=== PATIENT | male | born 2000 | race Caucasian/White ===

== ENCOUNTER 2022-06-29 10:20 | Emergency (ER) | payer OTHER, SELFPAY ==
--- NOTE | ~2022-06-29 | XR_ITS ---
EXAMINATION: XR ankle LT min 3V DATE: 06/29/2022 10:48 INDICATION: Left ankle pain post injury TECHNIQUE: Anteroposterior, oblique, mortise, and lateral views of the left ankle were obtained. COMPARISON: None. FINDINGS: Alignment is normal. No fracture. Joint spaces are well maintained. A couple bone islands in the diamante caneus. No ankle joint effusion. Soft tissue swelling overlying the lateral malleolus. IMPRESSION: 1. No acute osseous abnormality. Reviewed, dictated and finalized at location A.
[2022-06-29 10:35] VITALS: BP 150/76; PULSE 72; RESP 18; TEMP 37.1; O2SAT 98
--- NOTE | 2022-06-29 11:17 | ED.GENADULT ---
HPI - General Adult General Chief complaint: Extremity Injury, Lower Stated complaint: lt ankle injury History of Present Illness HPI narrative: Patient is a 21 y/o male who presents to the urgent care via pov for an evaluation of a left ankle injury that occurred last night. He is made by his sister. He reports he accidentally misstepped while walking down the stairs causing his left ankle to twist inward. He also reports pain and swelling. Pain is intermittent and achy in nature. Current pain level is 6 out of 10 on pain scale. Gerald wrap and NSAIDs provide moderate relief. Weightbearing worsens pain. Related Data Home Medications Medication Instructions Recorded Confirmed No Home Medications 06/29/22 06/29/22 Allergies Allergy/AdvReac Type Severity Reaction Status Date / Time No Known Allergies Allergy Unknown Verified 06/29/22 10:46 Review of Systems Review of Systems: Pertinent negatives: fever, chills, sweats, change in appetite, poor p.o. intake, malaise, calf tenderness, skin color changes, rash, warmth, numbness, tingling, loss of sensation, deformity, decreased range of motion, weakness, difficulty with ambulation/coordination, nausea, vomiting, lymphadenopathy, shortness of breath, chest pain, heart palpitations, and heart murmur. PMFSH Comments I have reviewed and agree with the patient's past medical, surgical, social, and family hx as documented by the RN. There is no relevant family history pertinent to the presenting complaint. Exam Narrative: GENERAL: Well-appearing, well-nourished, and in no acute distress. HEAD: Normocephalic, atraumatic. NECK: Supple. No Lymphadenopathy or nuchal rigidity appreciated. CHEST: Bilateral lung hong are clear to auscultation. No respiratory distress. No evidence of cough or pleuritic cp upon examination. HEART: Regular rate and rhythm. No murmur, gallop, or rub heard. EXTREMITIES: MODERATE GENERALIZED SWELLING NOTED TO LEFT ANKLE. NO EVIDENCE OF POINT TENDERNESS. MODERATE PAIN ELICITED WITH ACTIVE AND PASSIVE DORSIFLEXION. No evidence of injury, decreased ROM, swelling, cyanosis, hematoma, laceration, abrasion, deformity, rash, or puncture. No evidence of dislocation, ligament laxity, effusion, or pain at rest. Pulses palpable at 2+, strength 5/5, and cap refill < 3 seconds in affected extremity. DTRs normal. SLOWED GAIT WITH LEFT SIDED LIMP SKIN: Warm, dry, no rash. NEURO: No focal deficits. Alert and oriented x3. Course Course Level of Care: Express Care Visit Vital Signs Vital signs: Vital Signs Temperature 98.7 F 06/29/22 10:35 Pulse Rate 72 06/29/22 10:35 Respiratory Rate 18 06/29/22 10:35 Blood Pressure 150/76 H 06/29/22 10:35 Pulse Oximetry 98 06/29/22 10:35 Oxygen Delivery Room Air 06/29/22 10:35 Temperature 98.7 F 06/29/22 10:35 Pulse Rate 72 06/29/22 10:35 Respiratory Rate 18 06/29/22 10:35 Blood Pressure 150/76 H 06/29/22 10:35 Pulse Oximetry 98 06/29/22 10:35 Oxygen Delivery Room Air 06/29/22 10:35 Due to an elevated blood pressure, I had a detailed discussion with the patient and/or guardian regarding the need for follow-up with their primary care provider within the next 3-4 days. Patient verbalized understanding and agreed. Medical Decision Making Differential Diagnosis Differential Diagnosis: Sprain, strain, cellulitis, open fracture, closed fracture, gout Vital Signs Vital Signs: Vital Signs Temperature 98.7 F 06/29/22 10:35 Pulse Rate 72 06/29/22 10:35 Respiratory Rate 18 06/29/22 10:35 Blood Pressure 150/76 H 06/29/22 10:35 Pulse Oximetry 98 06/29/22 10:35 Oxygen Delivery Room Air 06/29/22 10:35 Temperature 98.7 F 06/29/22 10:35 Pulse Rate 72 06/29/22 10:35 Respiratory Rate 18 06/29/22 10:35 Blood Pressure 150/76 H 06/29/22 10:35 Pulse Oximetry 98 06/29/22 10:35 Oxygen Delivery Room Air 06/29/22 10:35 Imaging Data My impression: N
== END 2022-06-29 11:30 | disposition home or self-care (01) ==
PROVIDERS: Emergency Provider Nurse Practitioner Family
DX: S93.402A Sprain of unspecified ligament of left ankle, initial encounter (principal); S96.912A Strain of unspecified muscle and tendon at ankle and foot level, left foot, initial encounter; W10.9XXA Fall (on) (from) unspecified stairs and steps, initial encounter
CPT/HCPCS: 73610; 99213; G0463

== ENCOUNTER 2022-12-07 17:50 | Emergency (ER) | payer OTHER, SELFPAY ==
--- NOTE | 2022-12-07 18:01 | ED.GENADULT ---
HPI - General Adult General Chief complaint: Skin/Abscess/Foreign Body Stated complaint: rash in groin Time Seen by Provider: 12/07/22 18:01 Source: patient Mode of arrival: ambulatory Limitations: no limitations History of Present Illness HPI narrative: 22-year-old male patient presents to the [facility] with complaints of a wound to the left hip and the left groin for the past 3-4 days. Patient states the wound on left hip did but about 3 days ago and does appear that it is healing better but did put a ring around just make sure that the swelling or redness was not worsening. Patient states he has formed a little what he describes as cyst . To the left groin area it is tender. patient also complaining rash on right side of groin that has been itchy. Denies fevers, body aches or chills. Related Data Allergies Allergy/AdvReac Type Severity Reaction Status Date / Time No Known Allergies Allergy Unknown Verified 12/07/22 18:04 Review of Systems Review of Systems: CONSTITUTIONAL: Denies fever, chills, or sweats. EYES: Denies visual changes, redness, or discharge. ENT: Denies rhinorrhea, congestion, sore throat, or otalgia. CARDIOVASCULAR: Denies chest pain, palpitations, or edema. RESPIRATORY: Denies cough or dyspnea. GASTROINTESTINAL: Denies abdominal pain, nausea, vomiting, or diarrhea. GENITOURINARY: Denies dysuria or hematuria. SKIN: Positive wound to left hip and left groin. Positive rash to right groin. MUSCULOSKELETAL: Denies back pain, joint pain, or myalgia. NEUROLOGIC: Denies headache, numbness, or weakness. PSYCHIATRIC: Denies anxiety or depression. [facility] Past Medical History Medical History (Updated 12/07/22 @ 18:16 by PINKY Vogel) ADD (attention deficit disorder) Left wrist fracture Social History Social History Smoking status: Unknown if ever smoked Alcohol intake: current Substance use: never Living arrangements: with family Comments At the time of my signature I agree with nursing past medical history, surgical, social, and family history. There is no relevant family history pertinent to the presenting complaint. Exam Narrative: GENERAL: Well-appearing, well-nourished, and in no acute distress. HEAD: Normocephalic, atraumatic. EYES: PERRLA and EOMI. ENT: Nares clear, no rhinorrhea or epistaxis. Mucous membranes moist. NECK: Supple. No lymphadenopathy CHEST: Clear to auscultation. No respiratory distress. HEART: Regular rate and rhythm. No murmur heard. Normal peripheral pulses. ABDOMEN: Soft, nontender, nondistended, normal active bowel sounds. EXTREMITIES: Normal range of motion. No edema. SKIN: Patient has approximately less than 0.5 cm scabbed over flat wound noted to the left hip. No surrounding erythema or warmth does appear to be healing. There is a very small approximately 1 cm abscess with a purple dome-shaped oil to the left groin with slight erythema and warmth noted. It is tender to the touch. patient does have pinpoint erythemic rash noted to the crease of the right groin with satellite areas. NEURO: No focal deficits. Alert and oriented x3. Course Course Level of Care: Express Care Visit Vital Signs Vital signs: Vital Signs Temperature 36.3 C L 12/07/22 18:02 Pulse Rate 87 12/07/22 18:02 Respiratory Rate 16 12/07/22 18:02 Blood Pressure 138/74 12/07/22 18:02 Pulse Oximetry 98 12/07/22 18:02 Oxygen Delivery Room Air 12/07/22 18:02 Temperature 36.3 C L 12/07/22 18:02 Pulse Rate 87 12/07/22 18:02 Respiratory Rate 16 12/07/22 18:02 Blood Pressure 138/74 12/07/22 18:02 Pulse Oximetry 98 12/07/22 18:02 Oxygen Delivery Room Air 12/07/22 18:02 vital signs reviewed The patient has been informed that they may have pre-hypertension or Hypertension based on a BP reading in the department. I recommend that the patient call the primary care provider listed on their dis
[2022-12-07 18:02] VITALS: BP 138/74; PULSE 87; RESP 16; TEMP 36.3; O2SAT 98
== END 2022-12-07 18:17 | disposition home or self-care (01) ==
PROVIDERS: Emergency Provider Nurse Practitioner Family
DX: L02.214 Cutaneous abscess of groin (principal); L02.416 Cutaneous abscess of left lower limb; B35.6 Tinea cruris
CPT/HCPCS: 99213; G0463

== ENCOUNTER 2023-02-08 14:05 | Emergency (ER) | payer BC, OTHER, SELFPAY ==
[2023-02-08 14:19] VITALS: BP 150/77; PULSE 65; RESP 18; TEMP 36.7; O2SAT 98
--- NOTE | 2023-02-08 14:51 | ED.URI ---
HPI - URI/Sore Throat General Chief Complaint: Upper Respiratory Infection Stated Complaint: sore throat Time Seen by Provider: 02/08/23 14:40 Source: patient and RN notes reviewed Mode of arrival: ambulatory Limitations: no limitations History of Present Illness HPI Narrative: Patient presents today complaining of 3 day history of sore throat and irritation. Denies any additional symptoms to include fever, congestion, rhinorrhea, cough. Denies known sick contacts. Currently rates his pain 2/10 and has been taking ibuprofen with some relief. Related Data Allergies Allergy/AdvReac Type Severity Reaction Status Date / Time No Known Allergies Allergy Unknown Verified 02/08/23 14:40 Review of Systems Review of Systems: CONSTITUTIONAL: Denies body aches, fever, chills, or sweats. EYES: Denies visual changes, redness, or discharge. ENT: Denies rhinorrhea, congestion, or otalgia.+ sore throat CARDIOVASCULAR: Denies chest pain, palpitations, or edema. RESPIRATORY: Denies cough or dyspnea. GASTROINTESTINAL: Denies abdominal pain, nausea, vomiting, or diarrhea. GENITOURINARY: Denies dysuria or hematuria. SKIN: Denies rash, itching, or wounds. MUSCULOSKELETAL: Denies back pain, joint pain, or myalgia. NEUROLOGIC: Denies headache, numbness, tingling, or weakness. PSYCH: Denies depression or anxiety. [facility] Past Medical History Medical History ADD (attention deficit disorder) Left wrist fracture Social History Social History Smoking status: Unknown if ever smoked Alcohol intake: current Substance use: never Living arrangements: with family Comments At time of signature, I have reviewed and agree with nursing past medical, surgical, social and family history unless otherwise noted. Please see nursing chart for further information. There is no relevant family history pertinent to the presenting complaint Exam Narrative: GENERAL: Well-appearing, well-nourished, and in no acute distress. HEAD: Normocephalic, atraumatic. EYES: EOMI. No redness or drainage. Conjunctivae normal. ENT: Mucous membranes pink and moist. Nares clear. No rhinorrhea. TMs normal bilaterally. Throat erythematous and edematous. Tonsils 3+ with white exudate. Uvula midline. NECK: Normal AROM. Supple. Bilateral tonsillar lymphadenopathy. CHEST: No respiratory distress. Clear to auscultation. HEART: Regular rate and rhythm. No murmur appreciated. Normal peripheral pulses. EXTREMITIES: Normal range of motion. No edema. SKIN: Warm, dry, no rash. Capillary refill normal. Normal skin turgor. NEURO: No focal deficits. Alert and oriented x3. Gait steady. PSYCH: Normal affect. No signs of depression or anxiety. Course Course Level of Care: Express Care Visit Vital Signs Vital signs: Vital Signs Temperature 98.1 F 02/08/23 14:19 Pulse Rate 65 02/08/23 14:19 Respiratory Rate 18 02/08/23 14:19 Blood Pressure 150/77 H 02/08/23 14:19 Pulse Oximetry 98 02/08/23 14:19 Oxygen Delivery Room Air 02/08/23 14:19 Temperature 98.1 F 02/08/23 14:19 Pulse Rate 65 02/08/23 14:19 Respiratory Rate 18 02/08/23 14:19 Blood Pressure 150/77 H 02/08/23 14:19 Pulse Oximetry 98 02/08/23 14:19 Oxygen Delivery Room Air 02/08/23 14:19 Reviewed. Pt has been instructed to follow up with his PCP regarding his elevated blood pressure today. MDM - URI/Sore Throat MDM Narrative Medical decision making narrative: Rapid strep positive. Prescription for antibiotics sent to pharmacy. Anticipatory guidance given. Differential Diagnosis Differential diagnosis: Likely upper respiratory infection, pharyngitis and other (Strep throat) Lab Data Attestation: I reviewed the patient's lab results. Labs: Strep Screen Positive Group A Strep *(Reference Ra
== END 2023-02-08 15:01 | disposition home or self-care (01) ==
PROVIDERS: Emergency Provider Nurse Practitioner
DX: J02.0 Streptococcal pharyngitis (principal)
CPT/HCPCS: 87880; 99213; G0463

== ENCOUNTER 2023-05-21 12:05 | Emergency (ER) | payer BC, OTHER, SELFPAY ==
[2023-05-21 12:14] VITALS: BP 124/73; PULSE 70; RESP 18; TEMP 37; O2SAT 99
--- NOTE | 2023-05-21 12:42 | ED.URI ---
HPI - URI/Sore Throat General Chief Complaint: Upper Respiratory Infection Stated Complaint: covid symptoms Time Seen by Provider: 05/21/23 12:32 Source: patient and RN notes reviewed Mode of arrival: ambulatory Limitations: no limitations History of Present Illness HPI Narrative: Patient presents today with a 3 day history of fatigue, cough, sore throat. Denies fever, shortness of breath, chest pain. If girlfriend was diagnosed with COVID-19 5 days ago. He has been taking cold and flu medication without much relief. Denies history of asthma or any other chronic illnesses. He is a nonsmoker. Related Data Home Medications Medication Instructions Recorded Confirmed No Home Medications 05/21/23 05/21/23 Allergies Allergy/AdvReac Type Severity Reaction Status Date / Time No Known Allergies Allergy Unknown Verified 05/21/23 12:19 Review of Systems Review of Systems: CONSTITUTIONAL: Denies body aches, fever, chills, or sweats.+ fatigue EYES: Denies visual changes, redness, or discharge. ENT: Denies rhinorrhea, congestion, or otalgia.+ sore throat CARDIOVASCULAR: Denies chest pain, palpitations, or edema. RESPIRATORY: Denies dyspnea.+ cough GASTROINTESTINAL: Denies abdominal pain, nausea, vomiting, or diarrhea. GENITOURINARY: Denies dysuria or hematuria. SKIN: Denies rash, itching, or wounds. MUSCULOSKELETAL: Denies back pain, joint pain, or myalgia. NEUROLOGIC: Denies headache, numbness, tingling, or weakness. PSYCH: Denies depression or anxiety. [facility] Past Medical History Medical History ADD (attention deficit disorder) Left wrist fracture Surgical History Surgical History No history of previous surgery Social History Social History Smoking status: Unknown if ever smoked Alcohol intake: current Substance use: never Living arrangements: with family Comments At time of signature, I have reviewed and agree with nursing past medical, surgical, social and family history unless otherwise noted. Please see nursing chart for further information. There is no relevant family history pertinent to the presenting complaint Exam Narrative: GENERAL: Well-appearing, well-nourished, and in no acute distress. HEAD: Normocephalic, atraumatic. EYES: EOMI. No redness or drainage. Conjunctivae normal. ENT: Mucous membranes pink and moist. Nares clear. No rhinorrhea. TMs normal bilaterally. Throat mildly erythematous without edema or exudate. Uvula midline. NECK: Normal AROM. Supple. No lymphadenopathy. CHEST: No respiratory distress. Clear to auscultation. HEART: Regular rate and rhythm. No murmur appreciated. Normal peripheral pulses. EXTREMITIES: Normal range of motion. No edema. SKIN: Warm, dry, no rash. Capillary refill normal. Normal skin turgor. NEURO: No focal deficits. Alert and oriented x3. Gait steady. PSYCH: Normal affect. No signs of depression or anxiety. Course Course Level of Care: Express Care Visit Vital Signs Vital signs: Vital Signs Temperature 98.6 F 05/21/23 12:14 Pulse Rate 70 05/21/23 12:14 Respiratory Rate 18 05/21/23 12:14 Blood Pressure 124/73 05/21/23 12:14 Pulse Oximetry 99 05/21/23 12:14 Oxygen Delivery Room Air 05/21/23 12:14 Temperature 98.6 F 05/21/23 12:14 Pulse Rate 70 05/21/23 12:14 Respiratory Rate 18 05/21/23 12:14 Blood Pressure 124/73 05/21/23 12:14 Pulse Oximetry 99 05/21/23 12:14 Oxygen Delivery Room Air 05/21/23 12:14 Reviewed. Pt has been instructed to follow up with his PCP regarding his elevated blood pressure today. MDM - URI/Sore Throat MDM Narrative Medical decision making narrative: COVID-19 positive. He does not fall into a high risk category for Paxlovid prescription. He is not experiencing any high-ri
== END 2023-05-21 12:49 | disposition home or self-care (01) ==
PROVIDERS: Emergency Provider Nurse Practitioner; PCP Physician Assistant Medical
DX: U07.1 COVID-19 (principal)
CPT/HCPCS: 87426; 99213; C9803; G0463

== ENCOUNTER 2025-09-17 08:28 | Emergency (ER) | payer BC, SELFPAY ==
--- OUTSIDE RECORDS SUMMARY | 2025-09-17 08:30 | XMS_ITS | Clinical Summary ---
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 Red all around, inflamed and painful. ) 06/28/2025 Travel from Last 3 Months Immunizations Immunization Administration Dates Next Due Dtap/Hib Vaccine 2005,06/02/2001, 1,01/25/2001 Hepatitis A (Generic) 09/03/2007,11/23/2006 Hepatitis B 11/29/2001,06/02/2001,2000 Hib Vaccine, Prp-T 06/02/2001,03/22/2001, 001 IPV/OPV 2005,11/29/2001,03/22/2001 ,01/25/2001 Influenza (Generic) 10/09/2019, 8,07/20/2017,07/09/2016,2013,08/05/2013,07/30/2012 Influenza Adult (Generic) 07/23/2009 Social History Tobacco Use Types Packs/Day Years Used Date Smoking Tobacco: Never Smokeless Tobacco: Never Tobacco Cessation:Counseling Given: No Alcohol Use Standard Drinks/Week Comments Yes 0 (1 standard drink = 0.6 oz pur e alcohol) PHQ-2 Answer Date Recorded Patient Health Questionnaire-2 Score 0 03/21/2025 Sex and Gender Information Value Date Recorded Sex Assigned at Male 06/28/2025 4:57 PM CDT Legal Sex Male 7:29 PM CDT Gender Identity Male 06/28/2025 4:57 PM CDT Sexual Orientation Not on file Last Filed Vital Signs Vital Sign Reading Time Taken Comments Blood Pressure 108/70 06/28/2025 4:53 PM CDT Pulse 62 06/28/2025 4:53 PM CDT Temperature 36.7 C (98 F) 06/28/2025 4:53 PM CDT Respiratory Rate 16 06/28/2025 4:53 PM CDT Oxygen Saturation 97% 06/28/2025 4:53 PM CDT Inhaled Oxygen Concentration - - Weight 105.5 kg (232 lb 8 oz) 06/28/2025 4:53 PM CDT Height 185.4 cm (6' 1) 06/28/2025 4:53 PM CDT Body Mass Index 30.67 06/28/2025 4:53 PM CDT Plan of Treatment Health Maintenance Due Date Last Done Comments Annual Physical 2003 Hepatitis C 2018 COVID-19 Vaccine ( season) 2025 10/21/2021, 09/30/2021 Influenza Adult (#1) 2025 10/09/2019, 07/12/2018, 07/20/2017, Additional history exists DTaP, Tdap and Td Vaccines (8 - Td or Tdap) 12/19/2034 12/19/2024, 04/08/2012, 2005, Additional history exists Hepatitis B Vaccines Completed 11/29/2001, 06/02/2001, 2000 Pneumococcal Vaccine: Pediatrics (0 to 5 Years) and At-Risk Patients (6 to 49 Years) Completed 02/26/2002, 06/02/2001, 03/22/2001, Additional history exists Hepatitis A Vaccines Completed 09/03/2007, 11/23/19 07 HPV Vaccines Completed 10/11/2012, 05/29, 04/08/2012 Meningococcal Vaccine Completed 04/21/2017, 012 PHQ-2 (Physician [place]) Completed 03/21/2025 Meningococcal B Vaccine Aged Out No l onger eligible based on patient's age to complete this topic RSV Immunizations Under 20 Months Aged Out No longer eligible based on patient's age to complete this topic Insurance [facility] Care Teams Charge Aide Relationship Specialty Start Date End Date None, Provider, PCP - General 10/25/21
--- OUTSIDE RECORDS SUMMARY | 2025-09-17 08:30 | XMS_ITS | Clinical Summary ---
Author Organization [email or web address] Address [address] [place] [address] Care Team Providers Care Coal Washer Tender Name Role Phone Amada Smiley MD Primary Care Provider Source Comments [email or web address],non-owned Affiliates and Associated Physician Practices is amultiple site organization consisting of ambulatory clinics and hospital sitesin [place], [place], [place] and [place]. This disclosure is being madepursuant to the Care Everywhere program and may not contain all information available regarding this patient. Last updated 18.[email or web address] Allergies No known active allergies Medications * Be aware that medications may not be up to date on this document. Alwaysverify current medications with the patient. polyethylene glycol 3350 (MIRALAX) powder Take 17 g by mouth once daily as needed. 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 Gender Identity Not on file Sexual Orientation Not on file Plan of Treatment Health Maintenance Due Date Last Done Comments HIV SCREENING 2015 HPV VACCINE (1 - Male 3-dose series) 2015 HEPATITIS C SCREENING 11/20/2018 DTAP/TDAP/TD VACCINES (1 - Tdap) 2019 HEPATITIS B VACCINE (1 of 3 - 19+ 3-dose series) 2019 DEPRESSION SCREENING 09/28/2024 COVID-19 VACCINE (1 - 2024-2 6 season) 2025 INFLUENZA VACCINE (#1) 2025 ZOSTER VACCINE (1 of 2) 2050 HIB VACCINE Aged Out No longer eligi ble based on patient's age to complete this topic MENINGOCOCCAL (Group B) VACC INE SHARED DECISION-MAKING Aged Out No longer eligibl e based on patient's age to complete this topic MENINGOCOCCAL GROUPS A/C/Y/W VACCINE Aged Out No longer eligible b ased on patient's age to complete this topic PNEUMOCOCCAL VACCINE Aged Out No long er eligible based on patient's age to complete this topic Insurance [facility] Care Teams Coal Washer Tender Relationship Specialty Start Date End Date Amada Smiley MD [address] [place] [address] PCP - General Pediatrics 05/24/12
[2025-09-17 08:37] VITALS: BP 137/69; PULSE 75; RESP 16; TEMP 36.6; O2SAT 98
--- NOTE | 2025-09-17 08:44 | ED.URI ---
HPI - URI/Sore Throat General Chief Complaint: Upper Respiratory Infection Stated Complaint: URI Patient presents to the [facility] with complaints of continued drainage, cough, chest congestion, and fatigue that began about 5 days ago. Patient noted when in to primary care office was tested for strep which was negative they recommended flu and COVID testing which was not available in our office patient went to the pharmacy and got an at-home COVID and flu test. Patient noted testing positive for influenza A. Patient noted resting and taking [id number] cough cold medications and most symptoms have significantly resolved. Patient noted he spoke with primary care office 2 days ago and requested steroids as this has helped him in the past and they did not send this in. Patient also noted using benzonatate in the past which has significantly helped with cough. Denies current fever, chills, body aches, dizziness, shortness of breath, nausea, vomiting, diarrhea. Related Data Allergies Allergy/AdvReac Type Severity Reaction Status Date / Time No Known Allergies Allergy Unknown Verified 09/17/25 08:37 Review of Systems Constitutional: Constitutional: Reports as per HPI, Reports chills, Reports fatigue, Reports fever(s) and Denies weakness Eyes: Eyes: Reports no additional eye complaints ENT: Reports as per HPI, Denies vertigo, Denies dizziness, Reports nasal congestion and Reports sore throat Cardiovascular: Cardiovascular: Reports no additional cardiovascular complaints Respiratory: Respiratory: Reports as per HPI, Reports chest congestion, Reports cough, Denies dyspnea and Denies wheezing Gastrointestinal: Gastrointestinal: Reports as per HPI, Denies abdominal pain, Denies diarrhea, Denies nausea and Denies vomiting Genitourinary: Genitourinary: Reports no additional male genitourinary complaints Musculoskeletal: Musculoskeletal: Reports as per HPI, Denies back pain and Reports myalgias Integumentary/Breasts: Skin/Breast: Reports as per HPI, Denies erythema, Denies rash and Denies skin ulcer Neurologic: Reports as per HPI, Denies vertigo, Denies dizziness, Reports headache(s) and Denies weakness Psychiatric: Psychiatric: Reports no additional psychiatric complaints Endocrine: Endocrine: Reports no additional endocrine complaints Hematologic/Lymphatic: Hematologic/Lymphatic: Reports no additional hematologic/lymphatic complaints Allergic/Immunologic: Allergic/Immunologic: Reports no additional allergic/immunologic complaints PMFSH Past Medical History Medical History Left wrist fracture ADD (attention deficit disorder) Surgical History Surgical History No history of previous surgery Social History Social History Social History: 03/30/25 Somewhat confident with medical forms 05/03/25 declined sdoh Smoking status: Never smoker Alcohol intake: current Substance use: never Lack of Transportation: No Lack of Food: Never True Current Housing: I Have Housing Concerned About Future Housing: No Difficulty Paying Gas/Electric Bills: No Difficulty Paying for Meds: No Currently Unemployed: No Education: Bachelor's Degree Difficulty w/ Childcare or Family Care: No Living arrangements: with family Spiritual care concerns: No Agree to blood products: Yes Exam Const: General: healthy appearing and no acute distress Nutritional Appearance: well nourished Orientation/consciousness: patient oriented x3 Limitations: no limitations HENMT: Head: normal to inspection Ears: external ears normal and TM's abnormal bilaterally ( Minimal erythema and dullness noted bilaterally) Face/Nose/Sinus: Normal external nose present and Normal nares present Face and sinus: normal facial exam and sinuses nontender Mouth: Yes Normal oral and palatal mucosa present, Yes lip normal and Yes moist mucous membranes Throat: posterior oropharynx abnormal ( minimal erythema and edema no exudate) Neck: Neck: normal visual inspection and no lymphadenopathy Resp: Effort & Inspection: normal respiratory effort Auscultation: clear to auscultation bilaterally Cardio: Rate: regular rate Rhythm: regular rhythm Skin: General skin exam: normal color Rashes: no rashes Wounds: no wounds Neuro: General: patient oriented x3 Speech: normal speech Gait exam (Neuro): Normal gait present Psych: Mental Status: mental status grossly normal Affect: normal affect Attitude: cooperative Course Course Level of Care: Express Care Visit Vital Signs Vital signs: Vital Signs Temperature 97.9 F 09/17/25 08:37 Pulse Rate 75 09/17/25 08:37 Respiratory Rate 16 09/17/25 08:37 Blood Pressure 137/69 09/17/25 08:37 Pulse Oximetry 98 09/17/25 08:37 Oxygen Delivery Room Air 09/17/25 08:37 Temperature 97.9 F 09/17/25 08:37 Pulse Rate 75 09/17/25 08:37 Respiratory Rate 16 09/17/25 08:37 Blood Pressure 137/69 09/17/25 08:37 Pulse Oximetry 98 09/17/25 08:37 Oxygen Delivery Room Air 09/17/25 08:37 [facility] MDM Narrative Medical decision making narrative: patient requested injection of steroids versus oral steroids. Will give this to patient while in office today can continue with [id number] medications educated patient on several signs and symptoms that would need chest x-ray and follow-up post influenza. The patient was evaluated by myself [facility]. History is obtained from patient who is an independent historian and physical exam was performed. Available medical records were reviewed at this time. Exam findings show no acute concerns or changes; patient is non-toxic appearing and is in no distress. Patient is appropriate for outpatient treatment and follow-up. I have evaluated and discussed social determinants of health with the patient that could potentially impact subsequent diagnosis and treatment plans. Differential diagnosis and treatment plan were discussed with the patient. Patient agrees with discussion and after shared medical decision making agrees with plan of care. All questions were answered to the patient's satisfaction. Differential Diagnosis Differential Diagnosis: Influenza, sinusitis, pneumonia, bronchitis Medical Records I have reviewed the following patient records and this information was taken into consideration when formulating the assessment and plan.: previous labs, previous ER visits, previous hospitalizations and previous clinic visits Discharge Plan Discharge Clinical Impression: Bronchitis Patient Disposition: Home Condition: Stable Instructions: Antibiotic Form, Acute Bronchitis (ED) Additional Instructions: Viral illness may last between 7-12days; antibiotic is NOT recommended at this time. Recommend antihistamine such as Benadryl at night time and Claritin/Zyrtec/Angelina during the day. Also using steroid nasal spray like Flonase can help with symptoms and congestion. Using sudafed for significant congestion will also give some relief. Cough syrup may cause drowsiness; avoid driving or take it at night time. Use inhaler as needed for cough, wheezing, shortness of breath or chest tightness. Also, recommend symptomatic treatment includes: rest, fluids, increase humidity of the air at home. Recommend Acetaminophen or nonsteroidal anti-inflammatory agents(NSAIDs) as directed in the bottle to reduce fever and/pain/headache. Avoid smoking/second-hand smoke. Limit visits to areas with large crowds. Frequent hand washing or hand pharmacy resource tech is one of the best ways to prevent spread of infection. Please schedule a followup visit with your personal physician for further evaluation and treatment within 3-5days. Including recheck and discussion of your blood pressure. If your symptoms persist, change or worsen significantly before you can contact your personal physician then please, without delay, go to the emergency department for further evaluation. Patient Language: Mongolian Prescriptions: New benzonatate 200 mg capsule 200 mg PO TID PRN (Reason: cough) Qty: 30 0RF Follow-up/Referrals: Lexi Toure APRN [Primary Care Provider, [facility]] Time of Disposition: 08:57
[2025-09-17] MEDS: dexAMETHasone SOD PHOS INJ 10 MG/ML 1 ML VIAL IM (08:47)
== END 2025-09-17 08:59 | disposition home or self-care (01) ==
PROVIDERS: Emergency Provider Nurse Practitioner Family; PCP Nurse Practitioner Family
DX: J40 Bronchitis, not specified as acute or chronic (principal)
CPT/HCPCS: 96372; 99213; G0463; J1100